=== PATIENT | male | born 1995 | race Caucasian/White ===

== ENCOUNTER → 2023-05-24 16:05 | Outpatient (CLI) | payer OTHER, SELFPAY ==
--- NOTE | 2023-05-24 | DI.MRI.S_ITS ---
PROCEDURE: MR LOWER LEG LT WO CON COMPARISON: None. INDICATIONS: Unspecified injury of left Achilles tendon Technique: Multiplanar and multisequence MR images of left lower leg were obtained without IV contrast. FINDINGS: Bones and joints: There is no marrow edema. No acute fracture or dislocation. No cortical erosion or abnormal periosteal reaction is seen. No suspicious intraosseous lesion. Soft tissues: There is full-thickness rupture of Achilles tendon approximately 3.4 cm from its insertion on posterior calcaneus with up to 2.5 cm proximal retraction of torn tendon fibers and moderate amount of surrounding fluid and soft tissue edema. There is fluid within soft tissue along anterior and medial aspect of missed to distal tibial shaft. No gross muscle signal abnormalities. IMPRESSION: 1. Full-thickness rupture of Achilles tendon approximately 3.4 cm from its insertion on posterior calcaneus with up to 2.5 cm proximal retraction of torn tendon fibers and a fluid-filled gap with surrounding soft tissue edema. 2. No other muscle or tendon signal abnormality is seen. Mild soft tissue swelling and edema along anterior, medial and posterior aspect of right mid to distal tibial shaft. 3. No marrow signal abnormality. No fracture or dislocation. No suspicious bony lesion. Dictated by: Taj Vaughan M.D. on 05/27/2023 at 12:31 Approved by: Taj Vaughan M.D. on 05/27/2023 at 12:37
== END ==
DX: S86.012A Strain of left Achilles tendon, initial encounter (principal); X58.XXXA Exposure to other specified factors, initial encounter
CPT/HCPCS: 73718